=== PATIENT | female | born 1945 | race Caucasian/White ===

== ENCOUNTER 2018-02-15 11:14 | Day surgery (SDC) | payer MEDICARE, OTHER ==
[~2018-02-15] VITALS: Ht 172.7 cm; Wt 73.3 kg
[2018-02-15] MEDS ORDERED: LACTATED RINGERS 1,000 ML IV SCH (12:00)
[2018-02-15] MEDS ORDERED: [UNRECOGNIZED DRUG - OTHER] INH (12:12)
[2018-02-15] MEDS ORDERED: [UNRECOGNIZED DRUG - OTHER] PO (12:12)
[2018-02-15] MEDS ORDERED: SENN1TAB9 PO (12:12)
[2018-02-15] MEDS ORDERED: CHOL500015 PO (12:12)
[2018-02-15] MEDS ORDERED: ALBUTEROL INHALER (12:12)
[2018-02-15] MEDS ORDERED: DOXYCYCLINE PO (12:12)
[2018-02-15] MEDS ORDERED: LEVO137T2 PO (12:12)
[2018-02-15] MEDS ORDERED: TIOT18CA INH (12:12)
[2018-02-15] MEDS ORDERED: UBID100C41 PO (12:12)
[2018-02-15] MEDS ORDERED: MEGA RED PO (12:12)
[2018-02-15] MEDS ORDERED: [UNRECOGNIZED DRUG - OTHER] PO (12:12)
[2018-02-15] MEDS ORDERED: MELATONIN PO (12:12)
[2018-02-15] MEDS ORDERED: DOXE2.5C2 PO (12:12)
[2018-02-15 12:13] VITALS: BP 134/80
[2018-02-15] MEDS ORDERED: PROPOFOL 10 MG/ML, 20ML ONE (13:28)
[2018-02-15] MEDS ORDERED: FENTANYL PF 100 MCG/2ML IV PRN (14:30)
[2018-02-15] MEDS ORDERED: ALBUTEROL/IPRATROPIUM 2.5MG/0.5MG, 3 ML NPPB PRN (14:30)
[2018-02-15] MEDS ORDERED: ACETAMINOPHEN 325 MG TABLET PO PRN (14:30)
== END 2018-02-15 15:35 | disposition home or self-care (01) ==
LOC: EDSEX 11:14 → OR 11:14 → OUT 15:35
PROVIDERS: ATTEND Internal Medicine
DX: K62.1 Rectal polyp (principal); K57.30 Diverticulosis of large intestine without perforation or abscess without bleeding; E03.9 Hypothyroidism, unspecified; J45.909 Unspecified asthma, uncomplicated; J44.9 Chronic obstructive pulmonary disease, unspecified; F41.9 Anxiety disorder, unspecified; Z87.39 Personal history of other diseases of the musculoskeletal system and connective tissue; Z86.010 Personal history of colon polyps; Z98.890 Other specified postprocedural states; Z72.89 Other problems related to lifestyle; Z87.891 Personal history of nicotine dependence; Z79.82 Long term (current) use of aspirin; Z79.899 Other long term (current) drug therapy; Z88.4 Allergy status to anesthetic agent; Z88.1 Allergy status to other antibiotic agents; Z88.0 Allergy status to penicillin; Z88.8 Allergy status to other drugs, medicaments and biological substances
CPT/HCPCS: 45385; 88305; 93005; J2704; J7120

== ENCOUNTER 2018-02-16 15:56 | Emergency (ER) | payer MEDICARE, OTHER ==
[~2018-02-16] VITALS: Ht 172.7 cm; Wt 74.3 kg
[~2018-02-16 15:56] MED LIST: ALBUTEROL INHALER; CHOL500015 PO; DOXE2.5C2 PO; DOXYCYCLINE PO; LEVO137T2 PO; MEGA RED PO; MELATONIN PO; SENN1TAB9 PO; TIOT18CA INH; UBID100C41 PO; [UNRECOGNIZED DRUG - OTHER] INH; [UNRECOGNIZED DRUG - OTHER] PO; [UNRECOGNIZED DRUG - OTHER] PO
[2018-02-16 16:00] VITALS: BP 122/71
[2018-02-16] MEDS ORDERED: FAMOTIDINE 20 MG TABLET ONE (16:17)
[2018-02-16] MEDS ORDERED: DEXAMETHASONE 4 MG/ML, 1ML ONE (16:17)
[2018-02-16] MEDS ORDERED: FAMOTIDINE 20 MG/2 ML IVPush ONE (16:30)
[2018-02-16] MEDS ORDERED: DIPHENHYDRAMINE 25 MG CAPSULE PO ONE (16:30)
[2018-02-16] MEDS ORDERED: DEXAMETHASONE 4 MG/ML, 1ML IM ONE (16:30)
[2018-02-16] MEDS ORDERED: FAMOTIDINE 20 MG TABLET PO ONE (16:30)
[2018-02-16] MEDS ORDERED: methylPREDNISolone SOD SUCC 125 MG/2 ML IVPush ONE (16:30)
[2018-02-16] MEDS ORDERED: SODIUM CHLORIDE FLUSH 10ML SYR IVF ONE (16:30)
== END 2018-02-16 16:36 | disposition home or self-care (01) ==
LOC: ED 16:26
DX: T78.40XA Allergy, unspecified, initial encounter (principal); X58.XXXA Exposure to other specified factors, initial encounter; J45.909 Unspecified asthma, uncomplicated; E03.9 Hypothyroidism, unspecified
CPT/HCPCS: 96372; 99283; J1100